=== PATIENT | female | born 1950 | race Hispanic/Latino ===

== ENCOUNTER 2024-03-21 08:48 | Day surgery (SDC) | payer OTHER, MEDICARE ==
[2024-03-21] VITALS (10 sets, daily range): BP systolic 114–153; BP diastolic 49–69; PULSE 58–159; RESP 15–18; TEMP 97.1–98
[~2024-03-21] VITALS: Ht 149.9 cm; Wt 64.4 kg
[2024-03-21] MEDS ORDERED: ATOR10 PO (09:42)
[2024-03-21] MEDS ORDERED: METO5TAB2 PO (09:42)
[2024-03-21] MEDS ORDERED: FAMO40TA7 PO (09:42)
[2024-03-21] MEDS ORDERED: LISI5TAB21 PO (09:42)
[2024-03-21] MEDS: 0.9%NACL 1000ML 1,000 ML IV ONE (09:52)
[2024-03-21] MEDS ORDERED: proPOFol 10 MG/ML 20ML VIAL IV ONE (09:59)
== END 2024-03-21 11:21 | disposition home or self-care (01) ==
LOC: ENDO 08:48 → DAH 08:48 → ENDO 11:21
PROVIDERS: ATTEND Internal Medicine
DX: R13.10 Dysphagia, unspecified (principal); K29.50 Unspecified chronic gastritis without bleeding; K31.7 Polyp of stomach and duodenum; R14.0 Abdominal distension (gaseous); K31.89 Other diseases of stomach and duodenum; K52.3 Indeterminate colitis; D12.6 Benign neoplasm of colon, unspecified; K57.30 Diverticulosis of large intestine without perforation or abscess without bleeding; R93.5 Abnormal findings on diagnostic imaging of other abdominal regions, including retroperitoneum; K59.01 Slow transit constipation; I10 Essential (primary) hypertension; E11.9 Type 2 diabetes mellitus without complications; Z90.49 Acquired absence of other specified parts of digestive tract; Z98.49 Cataract extraction status, unspecified eye; Z79.4 Long term (current) use of insulin; Z79.899 Other long term (current) drug therapy
CPT/HCPCS: 43251; 82948 ×2; 43239; J7030 ×2; J2704; A4620; A4215; A4223; A7002; A4222; A4221; A4663; A4606; J3490